=== PATIENT | female | born 1995 | race Caucasian/White ===

== ENCOUNTER 2018-11-13 17:02 | Observation (INO) ==
--- NOTE | 2018-11-13 17:15 | Emergency Department Note ---
Disposition Clinical Impression: Hypocalcemia, Acute anxiety Disposition: Admitted As Inpatient Condition: Good General Adult HPI - General Chief complaint: ED General Medical Stated complaint: POSSIBLE ANXIETY ATTACK Time Seen by Provider: 11/13/18 17:05 Source: patient, other (boyfriend) Mode of arrival: private vehicle Limitations: no limitations Nursing Notes Reviewed: Yes Vital Signs Reviewed: Yes - History of Present Illness HPI Narrative: Patient presents to the ED complaining of shortness of breath, anxiety as well as numbness and tingling in her hands and lips after having her thyroid removed 3 days ago. Per patient's significant other she had a total thyroidectomy at [facility] on 11/10 after some nodules were found and biopsies during surgery revealed "cancer". She stayed overnight at [facility] and was released on the . Since being home she has been unable to sleep, has been anxious and nauseous but has not vomited. She is also had some loose stools. She reported feeling short of breath as well. He describes her as having "nonstop panic attacks". Patient reports having cold sweats but no fever. She reports mild discomfort at her incision site but denies any redness or drainage from the site. No chest pain or abdominal pain. States she tried to call her surgeon but they could not r each anyone so she came here to the ED. States she wants to go straight to [facility]. Pain Scale: 10 - Related Data Home Medications Medication Instructions Recorded Confirmed Calcitriol [Rocaltrol] 0.5 mcg PO DAILY 11/13/18 11/13/18 Calcium Carbonate 650 mg PO TID 11/13/18 11/13/18 Levothyroxine [Synthroid] 125 mcg PO 0630 11/13/18 11/13/18 OxyCODONE Immed Rel [Roxicodone 5 5 mg PO Q6HR PRN 11/13/18 11/13/18 MG] Venlafaxine [Effexor] 75 mg PO DAILY 11/13/18 11/13/18 hydrOXYzine HCl [Hydroxyzine HCl] 50 mg PO DAILY 11/13/18 11/13/18 Allergies Allergy/AdvReac Type Severity Reaction Status Date / Time Penicillins Allergy Hives Verified 11/13/18 17:16 sulfamethoxazole Allergy Hives Verified 11/13/18 17:16 [From Bactrim] trimethoprim [From Bactrim] Allergy Hives Verified 11/13/18 17:16 Constitutional: Reports: chills. Denies: fever, weakness, weight change Eyes: Denies: eye pain, eye discharge, vision change ENT ED: Denies: ear pain, throat pain, dental pain, hearing loss, epistaxis, congestion, dysphagia Cardiovascular: Denies: chest pain, palpitations, dyspnea on exertion, edema, syncope Respiratory: Reports: dyspnea. Denies: cough, wheezes, hemoptysis, stridor Gastrointestinal: Denies: abdominal pain, nausea, vomiting, diarrhea, constipation, hematemesis, melena, hematochezia Genitourinary: Denies: dysuria, frequency, hematuria, discharge Musculoskeletal: Denies: back pain, neck pain, arthralgia, myalgia Integumentary: Denies: rash, abrasion, lesions Neurological: Reports: numbness, paresthesias Psychiatric: Reports: anxiety. Denies: depression, suicidal thoughts, homicidal thoughts, auditory hallucinations, visual hallucinations Endocrine: Denies: fatigue Hematological/Lymphatic: Denies: easy bleeding, easy bruising Allergic/Immunologic: Denies: facial swelling, urticaria Past Medical History - Past Medical History Medical history: Reports: cancer, hypertension, other Psychiatric history: Reports: depression - Social History Smoking Status: Former smoker Smokeless Tobacco Status: No Alcohol use: Reports: none Drug use: Reports: marijuana Physical Exam - General Limitations: no limitations General appearance: alert, anxious - Head Head exam: atraumatic, normocephalic, normal inspection - Eye Eye exam: Present: normal appearance, PERRL, EOMI - ENT ENT exam: normal exam, normal oropharynx, mucous membranes moist - Neck Neck exam: Present: normal inspection, full ROM, trachea midline, other (surgical incision anterior neck, no erythema or drainage) - Chest Chest inspection: Present: normal inspection, symmetric chest wall rise - Respiratory Respiratory exam: Present: normal lung sounds bilaterally - Cardiovascular Cardiovascular exam: Present: regular rate, normal rhythm, normal heart sounds - Abdominal Exam Abdominal exam: Present: soft, Non-Tender. Absent: tenderness, distention, guarding, rebound, rigidity - Extremities Exam Extremities exam: Present: normal inspection, full ROM. Absent: tenderness, pedal edema - Back Exam Back exam: Present: normal inspection, full ROM. Absent: tenderness - Neurological Exam Neurological exam: Present: alert, oriented X3 - Psychiatric Psychiatric exam: Present: normal affect, normal mood - Skin Skin exam: Present: warm, dry, intact, normal color Course Course Narrative: Patient presents to the ED complaining of paresthesias, shortness of breath, feeling anxious and nauseous after having her thyroid removed 3 days ago. On arrival she slightly tachycardic and appears anxious but is otherwise not in any distress and hemodynamically stable. Patient does have a history of anxiety and is on Effexor. She reports compliance with her prescribed Synthroid, calcitriol and calcium carbonate. She was prescribed oxycodone for pain but has only taken one dose since being discharged. Given her recent surgery will check routine lab work including electrolytes and TSH symptoms may be related to hypocalcemia versus anxiety. Will give zofran for her nausea. - Reevaluation(s) Reevaluation #1: Laboratory studies show normal TSH however calcium and magnesium were slightly low and phosphorus is high. Patient states her surgeon would not let her leave the hospital with a low calcium level two days ago and she is very concerned about her current low level. I spoke to the transfer center at [facility] who will contact the patient's surgeon or whoever is on-call for their service and call me back. Patient also admits to being on hydroxyzine 3 times a day for a few months for her anxiety as well. She is requesting something for anxiety here currently as well as something for pain at her incision site. Will give hydroxyzine and Toradol. Nausea is better after receiving Zofran. Time: 18:45 Reevaluation #2: Called back [facility] who had an incorrect callback number and had not been able to reach me for additional information requested by the physician. Reviewed the case again with the new transfer center staff member. They are contacting the patient's surgeon and will call me back. Time: 20:05 Reevaluation #3: I spoke to Dr. Pierre at [facility]. He recommended replacing the patient's calcium with IV calcium, monitoring overnight and rechecking calcium before sending home with likely a higher dose of oral calcium for home. He reported patient's goal for discharge would be a calcium level of 8 and being asymptomatic. He did not feel that the patient required transfer or immediate follow up with endocrinology. I spoke to the hospitalist on duty, Dr. Zacarias, who agreed to accept the patient here. She has been ordered IV calcium and continuation of her oral calcium as well. Time: 20:40 Vital Signs Temperature 99.1 F 11/13/18 17:03 Pulse Rate 113 11/13/18 17:03 Respiratory Rate 16 11/13/18 17:03 Blood Pressure 142/90 11/13/18 17:03 O2 Sat by Pulse Oximetry 100 11/13/18 17:03 Temperature 97.3 F L 11/13/18 22:04 Pulse Rate 116 11/13/18 22:04 Respiratory Rate 20 11/13/18 22:04 Blood Pressure 128/89 11/13/18 22:04 O2 Sat by Pulse Oximetry 98 11/13/18 22:04 Oxygen Delivery Oxygen Delivery Room Air Medical Decision Making - Medical Records Medical records reviewed: Yes I reviewed the patient's medical records. - Lab Data Lab results reviewed: Yes I reviewed the patient's lab results. Result diagrams: 11/13/18 17:26 11/13/18 17:26 Lab Results 11/13/18 11/13/18 Range/Units 17:26 17:26 WBC 14.9 H (4.3-11.1) K/mcL RBC 4.52 (3.82-4.97) M/mcL Hgb 13.4 (11.5-15.4) g/dL Hct 38.6 (35.3-44.9) % MCV 85.4 (83.0-100.0) fL MCH 29.6 (28.0-33.3) pg MCHC 34.7 (31.6-35.5) g/dL RDW 12.0 (11.5-14.5) % Plt Count 364 (140-400) K/mcL MPV 8.6 L (9.4-12.4) fL Immature Gran % 0.5 (0-4) % Seg Neutrophils % 80.5 % Lymphocytes % 12.4 % Monocytes % 6.0 % Eosinophils % 0.3 % Basophils % 0.3 % Neutrophils # 12.0 H (1.6-8.9) K/mcL Lymphocytes # 1.9 (0.6-4.6) K/mcL Monocytes # 0.9 (0.0-1.3) K/mcL Eosinophils # 0.0 (0.0-0.6) K/mcL Basophils # 0.0 (0.0-0.2) K/mcL Sodium 139 (136-145) mEq/L Potassium 3.4 L (3.5-5.1) mEq/L Chloride 100 (98-107) mEq/L Carbon Dioxide 23 (23-29) mEq/L BUN 9 (6-20) mg/dL Creatinine 0.85 (0.60-1.20) mg/dL Est GFR ( Amer) > 60 (> 60) Est GFR (Non-Af Amer) > 60 (> 60) BUN/Creatinine Ratio 11 (6-26) Glucose 114 H (70-105) mg/dL Calculated Osmolality 288 (280-300) Calcium 7.7 L (8.6-10.3) mg/dL Phosphorus 5.9 H (2.7-4.5) mg/dL Magnesium 1.3 L (1.6-2.6) mg/dL TSH 1.855 (0.340-5.600) mcIU/mL - Radiology Data Radiology results reviewed: Yes I reviewed the patient's radiology results. ITS Impressions Chest X-Ray 11/13/18 17:15 IMPRESSION: 1. No acute abnormality. D/ / Ronald Angulo MD / Ronald Angulo MD Interpreting Provider: Ronald Angulo MD
[2018-11-13 17:32] LABS: Basophils % 0.3 %; Eosinophils % 0.3 %; Hematocrit 38.6 % (35.3-44.9); Hemoglobin 13.4 g/dL (11.5-15.4); Immature Granulocytes % 0.5 % (0-4); Lymphocytes # 1.9 K/mcL (0.6-4.6); Lymphocytes % 12.4 %; Mean Corpuscular HGB Conc 34.7 g/dL (31.6-35.5); Mean Corpuscular Hemoglobin 29.6 pg (28.0-33.3); Mean Corpuscular Volume 85.4 fL (83.0-100.0); Mean Platelet Volume 8.6 fL (9.4-12.4); Monocytes # 0.9 K/mcL (0.0-1.3); Platelet Count 364 K/mcL (140-400); Red Blood Count 4.52 M/mcL (3.82-4.97); Segmented Neutrophils % 80.5 %
[2018-11-13] MEDS ORDERED: Ondansetron 4 MG/2 ML VIAL IVP ONE (17:47)
[2018-11-13 17:50] LABS: BUN/Creatinine Ratio 11 (6-26); Blood Urea Nitrogen 9 mg/dL (6-20); Calcium 7.7 mg/dL (8.6-10.3); Carbon Dioxide 23 mEq/L (23-29); Chloride 100 mEq/L (98-107); Glucose 114 mg/dL (70-105); Magnesium 1.3 mg/dL (1.6-2.6); Osmolality,Calculated 288 (280-300); Phosphorous 5.9 mg/dL (2.7-4.5); Potassium 3.4 mEq/L (3.5-5.1); Sodium 139 mEq/L (136-145); eGFR For Non-African Americans > 60 (> 60)
[2018-11-13 18:03] LABS: Thyroid Stimulating Hormone 1.855 mcIU/mL (0.340-5.600)
[2018-11-13] MEDS ORDERED: Ketorolac 30 MG/ML VIAL IVP ONE (19:05)
[2018-11-13] MEDS ORDERED: hydrOXYzine pamoate 25 MG CAPSULE PO STA (19:05)
[2018-11-13] MEDS ORDERED: Naloxone 0.4 MG/ML INJ IVP PRN ×2 (20:30→21:36)
[2018-11-13] MEDS ORDERED: Ibuprofen 800 MG TABLET PO PRN ×2 (20:36→21:36)
[2018-11-13] MEDS ORDERED: *HR* OxyCODONE Immed Rel 5 MG TABLET PO PRN (21:36)
[2018-11-13] MEDS ORDERED: ALPRAZolam 0.25 MG TABLET PO PRN (22:37)
[2018-11-13] MEDS: Ondansetron ODT 4 MG TAB.RAPDIS SL PRN (23:08)
[2018-11-14 04:55] LABS: Alanine Aminotransferase 19 Units/L (7-52); Albumin 4.5 g/dL (3.5-5.7); Albumin/Globulin Ratio 1.6 (1.1-2.2); Alkaline Phosphatase 60 Units/L (34-104); Aspartate Amino Transferase 18 Units/L (13-39); BUN/Creatinine Ratio 10 (6-26); Bilirubin,Total 0.4 mg/dL (0.3-1.0); Blood Urea Nitrogen 9 mg/dL (6-20); Carbon Dioxide 27 mEq/L (23-29); Chloride 101 mEq/L (98-107); Globulin 2.8 g/dL (2.4-3.5); Glucose 124 mg/dL (70-105); Osmolality,Calculated 290 (280-300); Potassium 3.8 mEq/L (3.5-5.1); Sodium 140 mEq/L (136-145); Total Protein 7.3 g/dL (6.4-8.9); eGFR For Non-African Americans > 60 (> 60)
[2018-11-14] MEDS: Ondansetron ODT 4 MG TAB.RAPDIS SL PRN (05:17)
[2018-11-14] MEDS ORDERED: *HR* Promethazine 25 MG/ML VIAL IVP PRN (06:40)
[2018-11-14 07:28] VITALS: BP 126/71
[2018-11-14] MEDS ORDERED: hydrOXYzine pamoate 25 MG CAPSULE PO SCH (09:00)
--- NOTE | 2018-11-14 10:16 | Internal Med History&Physical ---
Date of Encounter: 11/14/18 Time of Encounter: 09:45 Assessment and Plan (1) Hypocalcemia Current visit: Yes Status: Acute Review of archived labs in the [facility] medical records shows PTH level has not been drawn. Uncertain if drawn at [facility]. She was given calcium gluconate IV in emergency room and continued on oral calcium carbonate. She wishes to be d ischarged home. Her PCP can order PTH level and monitor labs. (2) Neutrophilic leukocytosis Current visit: Yes Status: Acute Etiology uncertain. She reports feeling slightly fevered and chilled occasionally over the last 2 days. Urinalysis was not checked in emergency room. Chest x-ray was unremarkable. No evidence of infection at surgical site. Her PCP can monitor and do further workup as needed. (3) Hypokalemia Current visit: Yes Status: Acute Now resolved. Etiology not obvious but possibly due to intracellular potassium shift from respiratory alkalosis from hyperventilation due to anxiety. Her PCP can monitor. (4) Hypomagnesemia Current visit: Yes Status: Acute She denies vomiting or diarrhea. Magnesium oxide will be prescribed and her PCP can monitor. (5) Hyperglycemia Current visit: Yes Status: Acute FBS today was 124. Hemoglobin A1c can be drawn by her PCP. (6) Anxiety and depression Current visit: Yes Status: Chronic Continue hydroxyzine and Effexor. (7) Hypothyroidism Current visit: Yes Status: Chronic TSH was normal at 1.855 emergency room. Continue present dose Synthroid. Qualifiers: Hypothyroidism type: postoperative Qualified Code(s): E89.0 - Postprocedural hypothyroidism Internal Medicine - H&P: HPI Chief complaint: Numbness Admitted From: Emergency Dept Plans for Post Hospital Care: Home History of present illness: Ms. Hill is a 23 year old female who came to emergency room stating upon awakening the morning of admission she felt dyspnea with perioral numbness and tingling in her fingers. When it did not resolve after a few hours she came to emergency room. She was evaluated and found to have leukocytosis with left shift, hypokalemia, hypocalcemia, hypomagnesemia. She was admitted to [facility] floor for ongoing care needs. She reports having total thyroidectomy at [facility] 11/10/2018 for papillary thyroid cancer. She is uncertain if parathyroid glands were removed. She is presumed cancer free. She denies vomiting diarrhea or diuretic use. She states she feels improved at present time and back to her baseline and wishes to be discharged home. Endocrine history is negative for known diabetes or hyperlipidemia. Past Med Surg Social Fam HX - Past Medical History Medical history: cancer, hypertension, other Additional medical history: TACHYCARDIA,THYROID CANCER. Psychiatric history: depression - Past Surgical History Surgical History: thyroidectomy Additional surgical history: knee surgery - Social History Smoking Status: Former smoker Smokeless Tobacco Status: No Alcohol use: none Drug use: marijuana - Family History Mother Living Status: Still Living Hx Family Cardiac Disorders: Yes Father Living Status: Still Living Internal Medicine - H&P: Meds Calcitriol [Rocaltrol] 0.5 mcg PO DAILY 11/13/18 [History] Calcium Carbonate 650 mg PO TID 11/13/18 [History] Levothyroxine [Synthroid] 125 mcg PO 0630 11/13/18 [History] OxyCODONE Immed Rel [Roxicodone 5 MG] 5 mg PO Q6HR PRN 11/13/18 [History] Venlafaxine [Effexor] 75 mg PO DAILY 11/13/18 [History] hydrOXYzine HCl [Hydroxyzine HCl] 50 mg PO DAILY 11/13/18 [History] Allergy/AdvReac Type Severity Reaction Status Date / Time Penicillins Allergy Hives Verified 11/13/18 17:16 sulfamethoxazole Allergy Hives Verified 11/13/18 17:16 [From Bactrim] trimethoprim [From Bactrim] Allergy Hives Verified 11/13/18 17:16 All Systems PM: A 10-system review of systems was performed and is negative for pertinent findings except as documented above in the HPI. Review of systems: Gen.: She states her weight has increased approximately 35 pounds in the past year due to "thyroid disease". Cardiovascular: She denies hypertension CO heart failure angina DVT or pulmonary embolus Respiratory: She smoked from age 17 until 3 weeks ago. She denies chronic lung disease. She has not been tested for sleep apnea. GI: She denies disorders of her liver gallbladder or exocrine pancreas. : She denies hematuria dysuria or kidney stones Neurologic: She denies strokes seizures syncopal episodes or other neurologic problems Endocrine: As per history of present illness Hematology/oncology: She denies malignancy other than thyroid. She denies ane vinicio or other blood disorders. Psychiatric: She has anxiety and depression but denies other mental health issues. [place] skeletal: She had left knee ligament tear with surgical repair in high school. She denies other bone joint or muscle disorders. - Constitutional Vitals: Temp Pulse Resp BP Pulse Ox 97.7 F 103 16 126/71 96 11/14/18 07:02 11/14/18 07:02 11/14/18 07:02 11/14/18 07:02 11/14/18 07:02 Exam: Gen.: She is a well-developed well-nourished female lying in bed who appears in no acute distress at present time HEENT: Head is atraumatic and normocephalic. Eyes: EOMI. There is no scleral icterus. Mouth: Mucosa is moist Neck: She has a healing low anterior neck transverse surgical incision was staple closure in place. There is no erythema or drainage. There is no thyromegaly or adenopathy noted. Heart: Regular without murmurs gallops or ectopics Lungs: No wheezes or crackles heard. Abdomen: Soft and nontender. No masses or guarding are noted. Extremities: There is no cyanosis edema or clubbing noted. Dorsalis pedis and posttibial pulses are 2 over 2 bilaterally. Neurologic: Mental status: She is talkative and a good historian. Cranial nerves: Smile is symmetric. Forehead wrinkles bilaterally. Tongue protrudes midline. EOMI. Motor: There is no pronator drift. Cerebellar: Finger to nose is intact bilaterally. Skin: Warm and moist. Internal Med - H&P Results - Labs CBC & Chem 7: 11/13/18 17:26 11/14/18 04:30 Labs: Short CBC 11/13/18 Range/Units 17:26 WBC 14.9 H (4.3-11.1) K/mcL Hgb 13.4 (11.5-15.4) g/dL Hct 38.6 (35.3-44.9) % Plt Count 364 (140-400) K/mcL Neutrophils # 12.0 H (1.6-8.9) K/mcL BMP 11/13/18 11/14/18 17:26 04:30 Sodium 139 140 Potassium 3.4 L 3.8 Chloride 100 101 Carbon Dioxide 23 27 BUN 9 9 Creatinine 0.85 0.89 Glucose 114 H 124 H Calcium 7.7 L 8.0 L Liver Function 11/14/18 Range/Units 04:30 Total Bilirubin 0.4 (0.3-1.0) mg/dL AST 18 (13-39) Units/L ALT 19 (7-52) Units/L Alkaline Phosphatase 60 (34-104) Units/L Albumin 4.5 (3.5-5.7) g/dL - Impressions ITS Impressions Chest X-Ray 11/13/18 17:15 IMPRESSION: 1. No acute abnormality. D/ / Ronald Angulo MD / Ronald Angulo MD Interpreting Provider: Ronald Angulo MD
--- NOTE | 2018-11-14 10:33 | Discharge Summary ---
Date of Encounter: 11/14/18 Time of Encounter: 09:45 - Discharge Diagnosis (1) Hypocalcemia Priority: Primary Status: Acute (2) Neutrophilic leukocytosis Priority: Secondary Status: Acute (3) Hypokalemia Priority: Secondary Status: Resolved (4) Hypomagnesemia Priority: Secondary Status: Acute (5) Hyperglycemia Priority: Secondary Status: Acute (6) Anxiety and depression Priority: Secondary Status: Chronic (7) Hypothyroidism Priority: Secondary Status: Chronic Qualifiers: Hypothyroidism type: postoperative Qualified Code(s): E89.0 - Postprocedural hypothyroidism Hospital course: Ms. Hill is a 23 year old female who came to emergency room stating upon awakening the morning of admission she felt dyspnea with perioral numbness and tingling in her fingers. When it did not resolve after a few hours she came to emergency room. She was evaluated and found to have leukocytosis with left shift, hypokalemia, hypocalcemia, hypomagnesemia. She was admitted to [facility] floor for ongoing care needs. Initial orders written by the emergency room physician. I saw her on November 14 and performed a history physical and discharge. She was given IV calcium gluconate in emergency room and continued on calcium carbonate. Her calcium level bri to 8.0 by the following morning with albumin level 4.5. She had resolution of symptoms and wished to be discharged home which I felt was reasonable. She will increase calcium carbonate 650 mg 4 times a day. A 7 day supply was given at discharge. Magnesium level returned low at 1.3 in emergency room. She will be given magnesium oxide 400 mg daily with prescription for 7 days at discharge. Potassium level normalized to 3.8 by morning of discharge. She will be started on potassium chloride 10 mEq daily for 7 days at discharge. I told her she should seek medical attention if she had ongoing fevers and chills. Antibiotics were not given at discharge for the leukocytosis with left shift since she was afebrile and had no obvious source of infection. Fasting blood sugar on November 14 was 124. Her PCP can order hemoglobin A1c and/or other studies as needed. Phosphorus level was 5.9. I told her a PTH level should be checked to further evaluate hypocalcemia and hyperphosphatemia. She will be discharged home and follow with her PCP Mary Carmen Metzger CNP within 1 week. - Time Spent with Patient Total time spent providing and/or coordinating discharge services: - Discharge Medications Prescriptions: Calcium Carbonate 650 mg PO QID #28 tablet Magnesium Oxide 400 mg PO DAILY #7 tablet Potassium Chloride 10 meq PO DAILY #7 tab.er.prt Home Medications: Calcitriol [Rocaltrol] 0.5 mcg PO DAILY 11/13/18 [History] Levothyroxine [Synthroid] 125 mcg PO 0630 11/13/18 [History] OxyCODONE Immed Rel [Roxicodone 5 MG] 5 mg PO Q6HR PRN 11/13/18 [History] Venlafaxine [Effexor] 75 mg PO DAILY 11/13/18 [History] hydrOXYzine HCl [Hydroxyzine HCl] 50 mg PO DAILY 11/13/18 [History] Calcium Carbonate 650 mg PO QID #28 tablet 11/14/18 [Rx] Magnesium Oxide 400 mg PO DAILY #7 tablet 11/14/18 [Rx] Potassium Chloride 10 meq PO DAILY #7 tab.er.prt 11/14/18 [Rx] Allergies/Adverse Reactions: Allergy/AdvReac Type Severity Reaction Status Date / Time Penicillins Allergy Hives Verified 11/13/18 17:16 sulfamethoxazole Allergy Hives Verified 11/13/18 17:16 [From Bactrim] trimethoprim [From Bactrim] Allergy Hives Verified 11/13/18 17:16 Date of admission: 11/13/18 20:57 Primary care physician: Mary Carmen Metzger CNP - Constitutional Vitals: Temp Pulse Resp BP Pulse Ox 97.7 F 103 16 126/71 96 11/14/18 07:02 11/14/18 07:02 11/14/18 07:02 11/14/18 07:02 11/14/18 07:02 - Patient Status Disposition: Home, Self-Care Condition: Good - Discharge Instructions Follow Up With: Mary Carmen Metzger CNP [Primary Care Provider] - 1 week - Diet and Activity Activity: resume usual activities as tolerated Diet: advance to your usual diet
== END 2018-11-14 11:00 | disposition home or self-care (01) ==
LOC: EMEROOPIK 17:02 → INPPIK 17:02
PROVIDERS: ADMIT Internal Medicine; ATTEND Internal Medicine